=== PATIENT | female | born 1955 | race Caucasian/White ===

== ENCOUNTER → 2020-02-28 | Outpatient (CLI) | payer BC ==
[~2020-02-28] MED LIST: REGADENOSON 0.4 MG/5 ML SYRINGE ONE
== END | disposition home or self-care (01) ==
LOC: CVU 10:28
PROVIDERS: ATTEND Internal Medicine Cardiovascular Disease
DX: I05.1 Rheumatic mitral insufficiency (principal); I11.9 Hypertensive heart disease without heart failure; R07.9 Chest pain, unspecified
CPT/HCPCS: 78452; 93017; 93306; A9502; J2785